=== PATIENT | male | born 1940 | race Caucasian/White ===

== ENCOUNTER 2020-04-21 23:30 | Emergency (ER) | payer BC, MEDICARE ==
[2020-04-22 00:32] VITALS: BP 161/78; PULSE 66
--- NOTE | 2020-04-22 00:40 | EDM.PDOC ---
ED HPI GENERAL MEDICAL PROBLEM - General Chief Complaint: Chest Pain Stated Complaint: CHEST PAIN Time Seen by Provider: 04/22/20 00:35 Source of Information: Reports: Patient History Limitations: Reports: No Limitations - History of Present Illness INITIAL COMMENTS - FREE TEXT/NARRATIVE: p had shaking chills tonight and he went to bed and he developed chest pain. The pain was only in one area and it was sharp. Onset: Today, Other ( the chest pain started tonight. ) Duration: Hour(s): Location: Reports: Chest, Generalized, Other ( pt had chills. ) Associated Symptoms: Reports: Chest Pain, Cough denies Pain Score (Numeric/FACES): 0 - Related Data Allergies Allergy/AdvReac Type Severity Reaction Status Date / Time No Known Allergies Allergy Verified 04/22/20 00:08 Home Meds: Home Meds Calcium/Mag/D3/B12/FA/B6/[place] [Folgard OS] 1 each PO DAILY 12/03/13 [History] Lisinopril 10 mg PO DAILY 10/20/15 [History] Multivitamin with Minerals [Multiple Vitamin] 1 tab PO DAILY 10/20/15 [History] Vardenafil HCl [Levitra] 20 mg PO ASDIRECTED PRN 10/20/15 [History] Past Medical History - Past Health History Medical/Surgical History: Denies Medical/Surgical History HEENT History: Reports: Allergic Rhinitis, Impaired Vision Cardiovascular History: Reports: Hypertension Musculoskeletal History: Reports: Back Pain, Chronic Neurological History: Reports: Concussion - Infectious Disease History Infectious Disease History: Reports: Chicken Pox - Past Surgical History HEENT Surgical History: Reports: Tonsillectomy GI Surgical History: Reports: Colonoscopy Social & Family History - Tobacco Use Tobacco Use Status *Q: Never Tobacco User Second Hand Smoke Exposure: No - Caffeine Use Caffeine Use: Reports: Coffee, Soda - Alcohol Use Days Per Week of Alcohol Use: 1 Number of Drinks Per Day: 1 Total Drinks Per Week: 1 - Recreational Drug Use Recreational Drug Use: No - Living Situation & Occupation Living situation: Reports: , with Spouse Occupation: Retired ED ROS GENERAL - Review of Systems Review Of Systems: See Below Constitutional: Reports: Chills, Other (pt developed a cough about 3 days ago and tonight he has shaking chills. ) HEENT: Reports: No Symptoms Respiratory: Reports: Cough Cardiovascular: Reports: Chest Pain, Other ( this was in one area nd was stabbing. ) Endocrine: Reports: No Symptoms GI/Abdominal: Reports: No Symptoms : Reports: No Symptoms Musculoskeletal: Reports: Other (pt was loading corn yesterday. ) Skin: Reports: No Symptoms ED EXAM, GENERAL - Physical Exam Exam: See Below Free Text/Narrative:: pt arrived and was having chest pain and a cough. . Exam Limited By: No Limitations General Appearance: Alert, No Apparent Distress, Anxious, Other ( the pain went away before he left home. ) Ears: Normal TMs Nose: Normal Inspection Throat/Mouth: Normal Inspection Head: Atraumatic Neck: Normal Inspection Respiratory/Chest: No Respiratory Distress, Other (pt is tender in the left chest wall. ) Cardiovascular: Regular Rate, Rhythm GI/Abdominal: Soft, Non-Tender (Male) Exam: Deferred Rectal (Males) Exam: Deferred Back Exam: Normal Inspection Extremities: Normal Inspection Neurological: Alert, Oriented, Normal Cognition Psychiatric: Anxious Course - Vital Signs Last Recorded V/S: Last Vital Signs Temp 36.4 C 04/22/20 00:00 Pulse 66 04/22/20 00:00 Resp 16 04/22/20 00:00 BP 161/78 H 04/22/20 00:00 Pulse Ox 95 04/22/20 00:00 - Orders/Labs/Meds Orders: Active Orders 24 hr Category Date Time Status EKG Documentation Completion [RC] ASDIRECTED Care 04/21/20 23:42 Active CORONAVIRUS COVID-19, BRAD Stat Lab 04/22/20 00:47 Received EKG 12 Lead [EK] Routine Ther 04/21/20 23:42 Ordered Labs: Laboratory Tests 04/22/20 04/22/20 04/22/20 Range/Units 00:47 00:47 00:47 WBC 5.4 (4.5-11.0) K/uL RBC 4.67 (4.30-5.90) M/uL Hgb 13.8 D (12.0-15.0) g/dL Hct 41.9 (40.0-54.0) % MCV 90 (80-98) fL MCH 30 (27-31) pg MCHC 33 (32-36) % Plt Count 171 (150-400) K/uL Neut % (Auto) 47 (36-66) % Lymph % (Auto) 26 (24-44) % [place] % (Auto) 21 H (2-6) % Eos % (Auto) 5 H (2-4) % Baso % (Auto) 1 (0-1) % Sodium 139 L (140-148) mmol/L Potassium 4.5 (3.6-5.2) mmol/L Chloride 104 (100-108) mmol/L Carbon Dioxide 26 (21-32) mmol/L Anion Gap 13.5 (5.0-14.0) mmol/L BUN 27 H D (7-18) mg/dL Creatinine 1.5 H (0.8-1.3) mg/dL Est Cr Clr Drug Dosing 35.44 mL/min Estimated GFR (MDRD) 45 L (>60) Glucose 101 (74-106) mg/dL Calcium 8.3 L (8.5-10.1) mg/dL Total Bilirubin 0.3 (0.2-1.0) mg/dL AST 47 H (15-37) U/L ALT 73 (12-78) U/L Alkaline Phosphatase 39 L (46-116) U/L Troponin I < 0.017 (0.000-0.056) ng/mL Total Protein 6.6 (6.4-8.2) g/dL Albumin 3.3 L (3.4-5.0) g/dL Globulin 3.3 (2.3-3.5) g/dL Albumin/Globulin Ratio 1.0 L (1.2-2.2) Urine Color (YELLOW) Urine Appearance (CLEAR) Urine pH (5.0-8.0) Ur Specific [place] (1.008-1.030) Urine Protein (NEGATIVE) mg/dL Urine Glucose (UA) (NEGATIVE) mg/dL Urine Ketones (NEGATIVE) mg/dL Urine Occult Blood (NEGATIVE) Urine Nitrite (NEGATIVE) Urine Bilirubin (NEGATIVE) Urine Urobilinogen (0.2-1.0) EU/dL Ur Leukocyte Esterase (NEGATIVE) Urine RBC (0-5) Urine WBC (0-5) Ur Epithelial Cells Amorphous Sediment Urine Bacteria Urine Mucus 04/22/20 Range/Units 01:12 WBC (4.5-11.0) K/uL RBC (4.30-5.90) M/uL Hgb (12.0-15.0) g/dL Hct (40.0-54.0) % MCV (80-98) fL MCH (27-31) pg MCHC (32-36) % Plt Count (150-400) K/uL Neut % (Auto) (36-66) % Lymph % (Auto) (24-44) % [place] % (Auto) (2-6) % Eos % (Auto) (2-4) % Baso % (Auto) (0-1) % Sodium (140-148) mmol/L Potassium (3.6-5.2) mmol/L Chloride (100-108) mmol/L Carbon Dioxide (21-32) mmol/L Anion Gap (5.0-14.0) mmol/L BUN (7-18) mg/dL Creatinine (0.8-1.3) mg/dL Est Cr Clr Drug Dosing mL/min Estimated GFR (MDRD) (>60) Glucose (74-106) mg/dL Calcium (8.5-10.1) mg/dL Total Bilirubin (0.2-1.0) mg/dL AST (15-37) U/L ALT (12-78) U/L Alkaline Phosphatase (46-116) U/L Troponin I (0.000-0.056) ng/mL Total Protein (6.4-8.2) g/dL Albumin (3.4-5.0) g/dL Globulin (2.3-3.5) g/dL Albumin/Globulin Ratio (1.2-2.2) Urine Color Yellow (YELLOW) Urine Appearance Clear (CLEAR) Urine pH 5.5 (5.0-8.0) Ur Specific [place] 1.025 (1.008-1.030) Urine Protein Negative (NEGATIVE) mg/dL Urine Glucose (UA) Negative (NEGATIVE) mg/dL Urine Ketones Negative (NEGATIVE) mg/dL Urine Occult Blood Negative (NEGATIVE) Urine Nitrite Negative (NEGATIVE) Urine Bilirubin Negative (NEGATIVE) Urine Urobilinogen 0.2 (0.2-1.0) EU/dL Ur Leukocyte Esterase Negative (NEGATIVE) Urine RBC 0-5 (0-5) Urine WBC 0-5 (0-5) Ur Epithelial Cells Rare Amorphous Sediment Not seen Urine Bacteria Few Urine Mucus Not seen - Re-Assessments/Exams Free Text/Narrative Re-Assessment/Exam: 04/22/20 01:51 PT HAD A NORMAL EKG NEG TROP. hIS WBC IS LOW. hIS CHEMS LOOK GOOD. a COVID TEST WAS DONE AND WILL BE BACK IN 48 HOURS. Departure - Departure Time of Disposition: 01:52 Disposition: Home, Self-Care 01 Condition: Fair Clinical Impression: Viral illness, Chest wall pain Referrals: Dickson Gregory MD [Primary Care Provider] - Forms: ED Department Discharge Care Plan Goals: CALL FOR THE COVID RESULTS, TYLENOL AND MOTRIN FOR BODY ACHES, PUSH FLUIDS. Sepsis Event Note (ED) - Evaluation Sepsis Screening Result: No Definite Risk - Focused Exam Vital Signs: Vital Signs Temp Pulse Resp BP Pulse Ox 04/22/20 00:00 36.4 C 66 16 161/78 H 95 - My Orders Last 24 Hours: My Active Orders 04/21/20 23:42 EKG Documentation Completion [RC] ASDIRECTED EKG 12 Lead [EK] Routine 04/22/20 00:47 CORONAVIRUS COVID-19, BRAD Stat - Assessment/Plan Last 24 Hours: My Active Orders 04/21/20 23:42 EKG Documentation Completion [RC] ASDIRECTED EKG 12 Lead [EK] Routine 04/22/20 00:47 CORONAVIRUS COVID-19, BRAD Stat
== END 2020-04-22 02:10 | disposition home or self-care (01) ==
LOC: JP.ED 23:30
DX: U07.1 COVID-19 (principal); I10 Essential (primary) hypertension; Z79.899 Other long term (current) drug therapy; Z20.828 Contact with and (suspected) exposure to other viral communicable diseases
CPT/HCPCS: 36415; 80053; 81001; 84484; 85025; 93005; 93010; 99283; 99285; U0002

== ENCOUNTER 2024-01-18 09:35 | Day surgery (SDC) | payer MEDICARE ==
[2024-01-18] MEDS ORDERED: Propofol 200 MG/20 ML SDV ONE (10:09)
[2024-01-18] MEDS ORDERED: fentaNYL 50 MCG/ML SDV ONE ×2 (10:09→11:25)
[2024-01-18] MEDS: Sodium Chloride 0.9% 1,000 ML IV SCH (10:21)
[2024-01-18 13:49] VITALS: BP 112/46; PULSE 52
== END 2024-01-18 13:45 | disposition home or self-care (01) ==
LOC: JP.SDS 09:35
PROVIDERS: ATTEND Surgery
DX: Z12.11 Encounter for screening for malignant neoplasm of colon (principal); D12.2 Benign neoplasm of ascending colon; K57.30 Diverticulosis of large intestine without perforation or abscess without bleeding; I10 Essential (primary) hypertension
CPT/HCPCS: 88305; J2704; J3010; J7030